=== PATIENT | male | born 1955 ===

== ENCOUNTER 2017-04-04 03:41 | Emergency (ER) | payer SELFPAY ==
[2017-04-04 04:09] VITALS: BP 154/100
[2017-04-04 04:33] LABS: Bilirubin,Urine NEG (Negative); Blood,Urine MOD (Negative); Ketones,Urine NEG (Negative); Leukocyte Esterase,Urine NEG (Negative); Nitrite,Urine NEG (Negative); Protein,Urine <15 mg/dL mg/dL (Negative); Urobilinogen,Urine < 2.0 mg/dL (<2.0); WBC,Urine < 1.0 /HPF (0.0-6.0)
--- NOTE | 2017-04-04 05:07 | Emergency Department Report ---
ED General Adult HPI - General Chief complaint: Urogenital-Male Stated complaint: UTI Time Seen by Provider: 04/04/17 05:01 Source: patient Mode of arrival: Ambulatory Limitations: No Limitations - History of Present Illness Initial comments: Patient is a 61-year-old male past history of BPH who presents with urinary retention. Patient states that he last urinated last night. He states that his symptoms are severe and he is unable to urinate nothing makes it better or worse. Pt states that he is currently having some suprapubic pain as an 8 out of 10He says he's had this problem before in the past and he is Better and started which helped this problem. Patient states that he is having no nausea or vomiting or chest pain. Severity scale (0 -10): 10 - Related Data Previous Rx's Medication Instructions Recorded Last Taken Type HYDROcodone/APAP 10-325 [[place] 1 each PO Q8HR PRN #20 tablet 11/25/14 Unknown Rx 10-325 mg TAB] Allergies Allergy/AdvReac Type Severity Reaction Status Date / Time No Known Allergies Allergy Unverified 11/24/14 22:21 ED Review of Systems ROS: Stated complaint: UTI Other details as noted in HPI Constitutional: denies: chills, fever Eyes: denies: eye pain, eye discharge, vision change ENT: denies: ear pain, throat pain Respiratory: denies: cough, shortness of breath, wheezing Cardiovascular: denies: chest pain, palpitations Endocrine: no symptoms reported Gastrointestinal: denies: abdominal pain, nausea, diarrhea Genitourinary: as per HPI, other (urinary retention). denies: urgency, dysuria Musculoskeletal: denies: back pain, joint swelling, arthralgia Skin: denies: rash, lesions Neurological: denies: headache, weakness, paresthesias Psychiatric: denies: anxiety, depression Hematological/Lymphatic: denies: easy bleeding, easy bruising ED Past Medical Hx - Past Medical History Previous Medical History?: No - Surgical History Past Surgical History?: Yes Additional Surgical History: vasectomy, prostate biopsy - Social History Smoking Status: Never Smoker Substance Use Type: Alcohol - Medications Home Medications: Home Medications Medication Instructions Recorded Confirmed Last Taken Type HYDROcodone/APAP 10-325 [[place] 1 each PO Q8HR PRN #20 tablet 11/25/14 Unknown Rx 10-325 mg TAB] ED Physical Exam - General Limitations: No Limitations General appearance: alert, in no apparent distress - Head Head exam: Present: atraumatic, normocephalic - Eye Eye exam: Present: normal appearance - ENT ENT exam: Present: mucous membranes moist - Neck Neck exam: Present: normal inspection - Respiratory Respiratory exam: Present: normal lung sounds bilaterally. Absent: respiratory distress - Cardiovascular Cardiovascular Exam: Present: regular rate, normal rhythm. Absent: systolic murmur, diastolic murmur, rubs, gallop - GI/Abdominal GI/Abdominal exam: Present: soft, normal bowel sounds - Rectal Rectal exam: Present: deferred - exam: Present: other (patient has a Garza catheter inserted into his urethra draining yellow clear urine) - Extremities Exam Extremities exam: Present: normal inspection - Back Exam Back exam: Present: normal inspection - Neurological Exam Neurological exam: Present: alert, oriented X3 - Psychiatric Psychiatric exam: Present: normal affect, normal mood - Skin Skin exam: Present: warm, dry, intact, normal color. Absent: rash ED Course Vital Signs 04/04/17 04:06 Temperature 98.8 F Pulse Rate 100 H Respiratory 16 Rate Blood Pressure 154/100 Blood Pressure 154/100 [Right] O2 Sat by Pulse 98 Oximetry - Reevaluation(s) Reevaluation #1: 04/04/17 05:43 Patient is no longer having any pain and is feeling better after Garza catheter. We'll send patient home with a leg back ED Medical Decision Making - Lab Data Lab Results 04/04/17 Range/Units 04:20 Urine Color Straw (Yellow) Urine Turbidity Clear (Clear) Urine pH 6.0 (5.0-7.0) Ur Specific [place] 1.006 (1.003-1.030) Urine Protein <15 mg/dl (Negative) mg/dL Urine Glucose (UA) Neg (Negative) mg/dL Urine Ketones Neg (Negative) mg/dL Urine Blood Mod (Negative) Urine Nitrite Neg (Negative) Urine Bilirubin Neg (Negative) Urine Urobilinogen < 2.0 (<2.0) mg/dL Ur Leukocyte Esterase Neg (Negative) Urine WBC (Auto) < 1.0 (0.0-6.0) /HPF Urine RBC (Auto) 2.0 (0.0-6.0) /HPF - Medical Decision Making Chief medical diagnosis: BPH Differential medical diagnoses: UTI, urethra obstruction I will get urinalysis and I will place Garza catheter. Patient has likely BPH due to history and patient is draining urine once Garza has been placed. Also patient home with follow-up with the urologist gave patient return precautions come back to the emergency department. Critical care attestation.: If time is entered above; I have spent that time in minutes in the direct care of this critically ill patient, excluding procedure time. ED Disposition Clinical Impression: Urinary retention BPH (benign prostatic hyperplasia) Qualifiers: Lower urinary tract symptom presence: symptoms present Lower urinary tract symptom detail: urinary obstruction Qualified Code(s): N40.1 - Benign prostatic hyperplasia with lower urinary tract symptoms Disposition: TO HOME OR SELFCARE Is pt being admited?: No Does the pt Need Aspirin: No Condition: Stable Instructions: Benign Prostatic Hypertrophy (ED) Referrals: PRIMARY CARE, [Primary Care Provider] - 3-5 Days THAO CHRIS MD [Staff Physician] - 3-5 Days
== END 2017-04-04 05:24 | disposition home or self-care (01) ==
LOC: ED 03:41
DX: R33.9 Retention of urine, unspecified (principal); N40.1 Benign prostatic hyperplasia with lower urinary tract symptoms
CPT/HCPCS: 51702; 81001

== ENCOUNTER 2018-10-14 10:01 | Emergency (ER) | payer SELFPAY ==
[2018-10-14 10:32] VITALS: BP 150/84
[2018-10-14 11:45] LABS: Basophils % (Auto) 0.5 % (0.0-1.8); Eosinophils % (Auto) 0.3 % (0.0-4.3); Hematocrit 43.7 % (35.5-45.6); Hemoglobin 13.4 gm/dl (11.8-15.2); Lymphocytes # (Auto) 1.2 K/mm3 (1.2-5.4); Lymphocytes % (Auto) 25.2 % (13.4-35.0); Mean Corpuscular HGB Conc 31 % (32-34); Mean Corpuscular Volume 72 fl (84-94); Monocytes # (Auto) 0.4 K/mm3 (0.0-0.8); Platelet Count 278 K/mm3 (140-440); Red Blood Count 6.04 M/mm3 (3.65-5.03); Red Cell Distribution Width 14.4 % (13.2-15.2)
[2018-10-14 12:03] LABS: BUN/Creatinine Ratio 11; Blood Urea Nitrogen 9 mg/dL (9-20); Calcium 9.6 mg/dL (8.4-10.2); Hemolysis Index 3
--- NOTE | 2018-10-14 12:06 | Emergency Department Report ---
ED Male HPI - General Chief complaint: Abdominal Pain Stated complaint: POSS UTI Time Seen by Provider: 10/14/18 10:46 Source: patient Mode of arrival: Ambulatory Limitations: No Limitations - History of Present Illness Initial comments: This is a 62-year-old male nontoxic, well nourished in appearance, no acute signs of distress presents to the ED with c/o of urinary retention that started this morning about 3 AM. Patient stated that he has history of urinary retention and does follow up with a urologist and primary care doctor. Patient stated that he did have a normal biopsy of prostate and bladder and was within normal limits. Patient denies any abdominal pain or back pain. Patient denies any fever, chills, nausea, vomiting, chest pain, shortness of breath, headache or stiff neck. Patient. He is asymptomatic but does have urinary retention. Patient denies any drug allergies. Denies being diagnosed with any prostate issues. MD Complaint: other (urinary retention) -: This morning Radiation: none Severity scale (0 -10): 0 Improves with: none Worsens with: none denies other symptoms. denies: discharge, swelling, mass, rash, urinary retention, blood in urine, dysuria, fever, nausea/vomiting, incontinence - Related Data Previous Rx's Medication Instructions Recorded Last Taken Type HYDROcodone/APAP 10-325 [[place] 1 each PO Q8HR PRN #20 tablet 11/25/14 Unknown Rx 10-325 mg TAB] Sulfamethoxazole/Trimethoprim 1 each PO BID #20 tablet 10/14/18 Unknown Rx [Bactrim DS TAB] Allergies Allergy/AdvReac Type Severity Reaction Status Date / Time No Known Allergies Allergy Verified 10/14/18 10:02 ED Review of Systems ROS: Stated complaint: POSS UTI Other details as noted in HPI Constitutional: denies: chills, fever Eyes: denies: eye pain, eye discharge, vision change ENT: denies: ear pain, throat pain Respiratory: denies: cough, shortness of breath, wheezing Cardiovascular: denies: chest pain, palpitations Endocrine: no symptoms reported Gastrointestinal: denies: abdominal pain, nausea, diarrhea Genitourinary: denies: urgency, dysuria Musculoskeletal: denies: back pain, joint swelling, arthralgia Skin: denies: rash, lesions Neurological: denies: headache, weakness, paresthesias Psychiatric: denies: anxiety, depression Hematological/Lymphatic: denies: easy bleeding, easy bruising ED Past Medical Hx - Past Medical History Previous Medical History?: Yes Additional medical history: Hx of urinary retention. - Surgical History Past Surgical History?: Yes Additional Surgical History: vasectomy, prostate biopsy - Social History Smoking Status: Never Smoker Substance Use Type: None - Medications Home Medications: Home Medications Medication Instructions Recorded Confirmed Last Taken Type HYDROcodone/APAP 10-325 [[place] 1 each PO Q8HR PRN #20 tablet 11/25/14 Unknown Rx 10-325 mg TAB] Sulfamethoxazole/Trimethoprim 1 each PO BID #20 tablet 10/14/18 Unknown Rx [Bactrim DS TAB] ED Physical Exam - General Limitations: No Limitations General appearance: alert, in no apparent distress - Head Head exam: Present: atraumatic, normocephalic - Eye Eye exam: Present: normal appearance - Neck Neck exam: Present: normal inspection, full ROM - Respiratory Respiratory exam: Present: normal lung sounds bilaterally. Absent: respiratory distress, wheezes, rales, rhonchi, stridor, chest wall tenderness, accessory muscle use, decreased breath sounds, prolonged expiratory - Cardiovascular Cardiovascular Exam: Present: regular rate, normal rhythm, normal heart sounds. Absent: bradycardia, tachycardia, irregular rhythm, systolic murmur, diastolic murmur, rubs, gallop - GI/Abdominal GI/Abdominal exam: Present: soft, normal bowel sounds. Absent: distended, tenderness, guarding, rebound, rigid, diminished bowel sounds - Extremities Exam Extremities exam: Present: normal inspection, full ROM - Back Exam Back exam: Present: normal inspection, full ROM. Absent: tenderness, CVA tenderness (R), CVA tenderness (L), muscle spasm, paraspinal tenderness, vertebral tenderness, rash noted - Neurological Exam Neurological exam: Present: alert, oriented X3 - Psychiatric Psychiatric exam: Present: normal affect, normal mood - Skin Skin exam: Present: warm, dry, intact, normal color. Absent: rash ED Course Vital Signs 10/14/18 10:31 Temperature 97.9 F Pulse Rate 74 Respiratory 18 Rate Blood Pressure 150/84 O2 Sat by Pulse 99 Oximetry - Reevaluation(s) Reevaluation #1: 10/14/18 12:07 Patient is speaking in full sentences with no signs of distress noted. - Consultations Consultation #1: 10/14/18 12:10 Patient has been consulted with Radha Ochoa about patient history, physical exam, and stated no need for CT and patient to be discharged with dinh and follow-up with urologist. ED Medical Decision Making - Lab Data Result diagrams: 10/14/18 11:04 - Medical Decision Making This is a 62-year-old male presents with urinary retention. Patient is stable and was examined by me. Labs obtained. UA obtained. Patient was discussed with Dr. Arroyo and agrees to the ED plan of care and discharge with follow-up. Patient will be discharged with a Dinh catheter and was instructed to follow-up with a urologist tomorrow. I will give him antibiotics empirically. At time of discharge, the patient does not seem toxic or ill in appearance. No acute signs of distress noted. Patient agrees to discharge treatment plan of care. No further questions noted by the patient. Critical care attestation.: If time is entered above; I have spent that time in minutes in the direct care of this critically ill patient, excluding procedure time. ED Disposition Clinical Impression: Urinary retention Disposition: DC-01 TO HOME OR SELFCARE Is pt being admited?: No Does the pt Need Aspirin: No Condition: Stable Instructions: Urinary Retention in Men (ED) Additional Instructions: Follow-up with a urologist doctor in 1 day or if symptoms worsen and continue return to emergency room as soon as possible. Prescriptions: Sulfamethoxazole/Trimethoprim [Bactrim DS TAB] 1 each PO BID #20 tablet Referrals: [facility] MD ESEQUIEL [Primary Care Provider] - 3-5 Days FERNANDO OCHOA MD [Staff Physician] - 3-5 Days [facility] [Outside] - 3-5 Days [facility] [Outside] - 3-5 Days THAO CHRIS MD [Staff Physician] - 10/15/18 Forms: Work/School Release Form(ED)
[2018-10-14 12:09] LABS: Bilirubin,Urine NEG (Negative); Blood,Urine MOD (Negative); Color,Urine Straw (Yellow); Mucus,Urine FEW /HPF; Protein,Urine <15 mg/dL mg/dL (Negative); Urobilinogen,Urine < 2.0 mg/dL (<2.0)
== END 2018-10-14 12:29 | disposition home or self-care (01) ==
LOC: ED 10:01
DX: R33.9 Retention of urine, unspecified (principal)
CPT/HCPCS: 36415; 51702; 80048; 81001; 84153; 85025; 87086

== ENCOUNTER 2018-10-17 15:22 | Emergency (ER) | payer SELFPAY ==
--- NOTE | 2018-10-17 15:27 | Emergency Department Report ---
Chief Complaint: Urogenital-Male Stated Complaint: CHECK CATHETER Time Seen by Provider: 10/17/18 15:27 - HPI History of Present Illness: leaking urine around his cath which was placed last week urine without infection at that time advised pt not to pull the cath out without uro being involved due to strictures etc. to room to eval functioning of cath MSE COMPLETION MSE screening note: Focused history and physical exam performed. Due to findings the following was ordered: ED Disposition for MSE Condition: Stable
[2018-10-17 15:29] VITALS: BP 150/90
--- NOTE | 2018-10-17 15:59 | Emergency Department Report ---
ED General Adult HPI - General Chief complaint: Urogenital-Male Stated complaint: CHECK CATHETER Time Seen by Provider: 10/17/18 15:27 Source: patient Mode of arrival: Ambulatory Limitations: No Limitations - History of Present Illness Initial comments: Patient is 62 years old male with history of urinary retention status post Garza catheter placement last week. Patient has an appointment with his urologist tomorrow. Patient presented to the ER stating that there is a urine leakage around the Garza catheter. Patient denied any abdominal pain, fever, nausea or vomiting. Severity scale (0 -10): 0 - Related Data Previous Rx's Medication Instructions Recorded Last Taken Type HYDROcodone/APAP 10-325 [[place] 1 each PO Q8HR PRN #20 tablet 11/25/14 Unknown Rx 10-325 mg TAB] Sulfamethoxazole/Trimethoprim 1 each PO BID #20 tablet 10/14/18 Unknown Rx [Bactrim DS TAB] Allergies Allergy/AdvReac Type Severity Reaction Status Date / Time No Known Allergies Allergy Verified 10/14/18 10:02 ED Review of Systems ROS: Stated complaint: CHECK CATHETER Other details as noted in HPI Comment: All other systems reviewed and negative Constitutional: denies: chills, fever Respiratory: denies: shortness of breath Cardiovascular: denies: chest pain, palpitations Gastrointestinal: denies: abdominal pain, nausea Genitourinary: denies: dysuria, hematuria, discharge, testicular pain ED Past Medical Hx - Past Medical History Previous Medical History?: Yes Additional medical history: Hx of urinary retention. - Surgical History Past Surgical History?: Yes Additional Surgical History: vasectomy, prostate biopsy - Social History Smoking Status: Never Smoker Substance Use Type: None - Medications Home Medications: Home Medications Medication Instructions Recorded Confirmed Last Taken Type HYDROcodone/APAP 10-325 [[place] 1 each PO Q8HR PRN #20 tablet 11/25/14 Unknown Rx 10-325 mg TAB] Sulfamethoxazole/Trimethoprim 1 each PO BID #20 tablet 10/14/18 Unknown Rx [Bactrim DS TAB] ED Physical Exam - General Limitations: No Limitations General appearance: alert, in no apparent distress - Head Head exam: Present: atraumatic, normocephalic, normal inspection - Eye Eye exam: Present: normal appearance - Neck Neck exam: Present: normal inspection - Respiratory Respiratory exam: Present: normal lung sounds bilaterally - Cardiovascular Cardiovascular Exam: Present: regular rate, normal rhythm, normal heart sounds - GI/Abdominal GI/Abdominal exam: Present: soft, normal bowel sounds. Absent: distended, tenderness, guarding, rebound, rigid - exam: Present: normal inspection, other (Garza catheter in place.). Absent: testicular tenderness, urethral discharge, scrotal swelling, vertical testicular lie External exam: Present: normal external exam. Absent: erythema, swelling, lesions, ecchymosis, bleeding - Extremities Exam Extremities exam: Present: normal inspection - Neurological Exam Neurological exam: Present: alert, oriented X3 - Skin Skin exam: Present: warm, intact, normal color ED Course Vital Signs 10/17/18 15:27 Temperature 98.4 F Pulse Rate 84 Respiratory 18 Rate Blood Pressure 150/90 O2 Sat by Pulse 100 Oximetry ED Medical Decision Making - Medical Decision Making Patient is 62 years old male with history of urinary retention status post Garza catheter placement last week. Patient has an appointment with his urologist tomorrow. Patient presented to the ER stating that there is a urine leakage around the Garza catheter. Patient denied any abdominal pain, fever, nausea or vomiting. Garza catheter replaced in the ER. No complication. Patient advised to follow- up with his urologist in the morning. Critical care attestation.: If time is entered above; I have spent that time in minutes in the direct care of this critically ill patient, excluding procedure time. ED Disposition Clinical Impression: Urinary retention, Garza catheter problem Disposition: - TO HOME OR SELFCARE Is pt being admited?: No Condition: Stable Instructions: Garza Catheter Placement and Care (ED) Additional Instructions: Follow-up with urologist as scheduled tomorrow. Referrals: [facility] [Other] - 3-5 Days
== END 2018-10-17 17:20 | disposition home or self-care (01) ==
LOC: ED 15:22
DX: R33.9 Retention of urine, unspecified (principal); Z98.52 Vasectomy status
CPT/HCPCS: 51702